=== PATIENT | female | born 1955 | race Caucasian/White ===

== ENCOUNTER 2021-04-13 11:08 | Outpatient (CLI) | payer OTHER ==
--- NOTE | 2021-04-13 11:49 | XRAY Report ---
PROCEDURE: Chest 2 View X-Ray INDICATIONS: COUGH TECHNIQUE: 2 view(s) of the chest. COMPARISON: None. FINDINGS: Surgical changes and devices: None. Lungs and pleura: No pleural effusions or pneumothorax. Lungs are clear. Mediastinum: Mediastinal contours are normal. Heart size is normal. Bones and chest wall: No suspicious bony abnormalities. Age-appropriate degenerative changes are se en. Soft tissues appear unremarkable. IMPRESSION: Unremarkable chest plain films for age, without focal infiltrates. Reviewed by: Maged Webb MD on 04/13/2021 10:48 AM [facility] Approved by: Maged Webb MD on 04/13/2021 10:48 AM [facility] Station ID: [id number]
== END 2021-04-13 11:09 | disposition home or self-care (01) ==
LOC: DI.S 11:08
PROVIDERS: ATTEND Nurse Practitioner Family
DX: R05.9 Cough, unspecified (principal)

== ENCOUNTER 2021-07-13 16:04 | Outpatient (CLI) | payer OTHER | END 2021-07-13 16:05 | disposition critical access hospital (66) | LOC: EMS 16:04 | DX: S09.90XA Unspecified injury of head, initial encounter (principal); R42 Dizziness and giddiness; R11.0 Nausea; W22.8XXA Striking against or struck by other objects, initial encounter; Y92.008 Other place in unspecified non-institutional (private) residence as the place of occurrence of the external cause | CPT/HCPCS: A0425; A0429 ==

== ENCOUNTER 2021-07-13 16:31 | Emergency (ER) | payer OTHER ==
[2021-07-13] MEDS ORDERED: ACETAMINOPHEN 325 MG TABLET PO STA (17:53)
[2021-07-13] MEDS ORDERED: IBUPROFEN 800 MG TABLET PO STA (17:54)
--- NOTE | 2021-07-13 18:17 | ED Physician Documentation ---
History of Present Illness - Stated complaint Stated Complaint: HEAD INJURY - Chief complaint Chief Complaint: Trauma Hd/Nk - History obtained from History obtained from: Patient - History of Present Illness Timing: Today Pain level max: 6 Pain level now: 4 - Additonal information Additional information: Patient is a 66-year-old female who presents to the emergency department after sustaining a head injury today. She was at home when she stood up and hit her head on the metal bicycle rack. She states she has had a concussion in the past. She felt dazed after the event and still has a mild headache as well as mild neck pain. No numbness or tingling. Nothing seems to make it better or worse. She is not on any blood thinners. Review of Systems Constitutional: denies: Fever Cardiac: denies: Chest pain / pressure Respiratory: denies: Cough GI: denies: Nausea, Diarrhea Skin: denies: Rash Musculoskeletal: denies: Back pain Neurologic: denies: Focal weakness, Numbness, Seizure, Confused, Altered mental status PD PAST MEDICAL HISTORY - Past Medical History Endocrine/Autoimmune: HyPOthyroidism - Allergies Allergies/Adverse Reactions: Allergies Allergy/AdvReac Type Severity Reaction Status Date / Time Sulfa (Sulfonamide Allergy Hives Verified 07/13/21 16:39 Antibiotics) - Social History Does the pt have substance abuse?: No - Family History Family history: reports: Non contributory - Immunizations Immunizations are current?: Yes PD ED PE NORMAL - Vitals Vital signs reviewed: Yes - General General: Alert and oriented X 3, No acute distress, Well developed/nourished - HEENT HEENT: Atraumatic, PERRL, EOMI, Ears normal, Moist mucous membranes - Neck Neck: Other (Mild upper C-spine tenderness to palpation in the midline. 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, No motor deficit, No sensory deficit, Normal speech Eye Opening: Spontaneous Motor: Obeys Commands Verbal: Oriented GCS Score: 15 - Psych Psych: Normal mood, Normal affect Results - Vitals Vitals: Vital Signs - 24 hr 07/13/21 07/13/21 16:36 18:51 Temperature 36.8 C 97.8 C H Heart Rate 66 72 Respiratory 16 18 Rate Blood Pressure 135/75 H 131/68 H O2 Saturation 98 98 Oxygen O2 Source Room air - Rads (name of study) Head CT Radiology: Final report received, EMP read contemporaneously, See rad report (No acute abnormality) Cervical spine CT Radiology: Final report received, EMP read contemporaneously, See rad report (No acute abnormality) PD MEDICAL DECISION MAKING - ED course Complexity details: reviewed results, re-evaluated patient, considered differential, d/w patient, d/w family ED course: 66-year-old female status post a closed head injury as well as neck pain. Negative CT scans. Patient is well-appearing, nontoxic. No neurological deficits. Patient counseled regarding signs and symptoms for which I believe and urgent re-evaluation would be necessary. Patient with good understanding of and agreement to plan and is comfortable going home at this time This document was made in part using voice recognition software. While efforts are made to proofread this document, sound alike and grammatical errors may occur. Departure - Departure Disposition: 01 Home, Self Care Clinical Impression: Closed head injury Qualifiers: Encounter type: initial encounter Qualified Code(s): S09.90XA - Unspecified injury of head, initial encounter Condition: Good Instructions: ED Head Injury Closed Follow-Up: JUWAN HIGGINS ARNP [Primary Care Provider] - Comments: Please follow-up with your doctor as needed for further care. Your head CT and cervical spine CT do not show any acute abnormalities today. You can use Motrin or Tylenol as needed for any pain. Return if you worsen, especially for increasing pain, vomiting, seizures or other changes. Discharge Date/Time: 07/13/21 18:50
--- NOTE | 2021-07-13 18:29 | CT Report ---
PROCEDURE: HEAD WO INDICATIONS: head/neck injury metal bike rack TECHNIQUE: Noncontrast 4.5 mm thick angled axial sections acquired from the foramen magnum to the vertex. For r adiation dose reduction, the following was used: automated exposure control, adjustment of mA and/or kV according to patient size. COMPARISON: None. FINDINGS: Image quality: Excellent. CSF spaces: Basal cisterns are patent. No extra-axial fluid collections. Ventricles are normal in size and shape. Brain: No midline shift. No intracranial masses or hemorrhage. Meza-white matter interface is norm al. Skull and face: Calvarium and visualized facial bones are intact, without suspicious lesions. Sinuses: Visualized sinuses and mastoids are clear. IMPRESSION: No evidence of acute intracranial process. Reviewed by: Gregorio Morris MD on 07/13/2021 6:28 PM PDT Approved by: Gregorio Morris MD on 07/13/2021 6:28 PM PDT Station ID: [id number]
--- NOTE | 2021-07-13 18:31 | CT Report ---
PROCEDURE: CERVICAL SPINE WO INDICATIONS: head/neck injury metal bike rack TECHNIQUE: Noncontrast 3 mm thick sections acquired from the skull base to the T4 level. Sagittal and coronal r eformats were then constructed. For radiation dose reduction, the following was used: automated exp osure control, adjustment of mA and/or kV according to patient size. COMPARISON: None. FINDINGS: Image quality: Excellent. Bones: No fractures or dislocations. Visualized superior ribs are intact. Moderate cervical spondyl itic change. Severe disc height loss and uncovertebral joint hypertrophy at C4-C5 and C5-C6. This res ults in bilateral foraminal narrowing at C5-C6 and right foraminal narrowing at C4-C5. There is multi level cervical facet arthropathy. Soft tissues: Prevertebral soft tissues are normal in thickness. No paravertebral hematomas. No ap ical pneumothoraces. IMPRESSION: 1. No evidence acute cervical fracture or dislocation. 2. Cervical spondylitic change. Reviewed by: Gregorio Morris MD on 07/13/2021 6:30 PM PDT Approved by: Gregorio Morris MD on 07/13/2021 6:30 PM PDT Station ID: [id number]
[2021-07-13 18:51] VITALS: BP 131/68
== END 2021-07-13 18:50 | disposition home or self-care (01) ==
LOC: EDUNIT# → ED 16:31
DX: S09.90XA Unspecified injury of head, initial encounter (principal); W21.89XA Striking against or struck by other sports equipment, initial encounter; Y93.89 Activity, other specified; Y92.009 Unspecified place in unspecified non-institutional (private) residence as the place of occurrence of the external cause
CPT/HCPCS: 70450; 72125; 99282; 99284; A9270

== ENCOUNTER 2022-06-03 14:34 | Outpatient (CLI) | payer OTHER | END 2022-06-03 14:35 | disposition EMS.NT | LOC: EMS 14:34 | DX: R42 Dizziness and giddiness (principal) ==

== ENCOUNTER 2023-04-19 01:31 | Outpatient (CLI) | payer OTHER | END 2023-04-19 23:59 | disposition critical access hospital (66) | LOC: EMS 01:31 | DX: R07.9 Chest pain, unspecified (principal); R10.13 Epigastric pain | CPT/HCPCS: A0425; A0427 ==

== ENCOUNTER 2023-04-19 01:34 | Emergency (ER) | payer OTHER ==
--- NOTE | 2023-04-19 01:34 | ED Physician Documentation ---
PD HPI CHEST PAIN - Stated complaint Stated Complaint: CHEST PX - History obtained from History obtained from: Patient, EMS - Additional information Additional information: BIBA. Patient complains of chest pain, midline in the region of the xiphoid process. The pain woke her from sleep at approximately 12:30 AM this morning. She has not had pain like this before. She describes the pain as sharp, initially 9 out of 10 on a pain scale, improved to 6 out of 10 prior to EMS arrival, and resolved completely with 1 sublingual nitroglycerin given by EMS. The patient had already taken 324 mg of aspirin prior to EMS arrival. Patient did not note any exacerbating factors. She denies shortness of breath, leg swelling, diaphoresis, nausea/vomiting. Review of Systems Constitutional: denies: Fever, Chills, Sweats Cardiac: reports: Chest pain / pressure. denies: Palpitations, Pedal edema, Calf pain Respiratory: reports: Reviewed and negative GI: reports: Reviewed and negative PD PAST MEDICAL HISTORY - Past Medical History Past Medical History: Yes Endocrine/Autoimmune: HyPOthyroidism - Present Medications Home Medications: Ambulatory Orders Medication Instructions Recorded Confirmed Liothyronine [Cytomel] 10 mg PO BID 04/19/23 04/19/23 - Allergies Allergies/Adverse Reactions: Allergies Allergy/AdvReac Type Severity Reaction Status Date / Time Sulfa (Sulfonamide Allergy Hives Verified 04/19/23 01:47 Antibiotics) PD ED PE NORMAL - Vitals Vital signs reviewed: Yes - General General: Alert and oriented X 3, No acute distress, Well developed/nourished - Cardiac Cardiac: RRR, No murmur, No gallop, No rub - Respiratory Respiratory: No respiratory distress, Clear bilaterally - Abdomen Abdomen: Soft, Non tender, Non distended - Derm Derm: Normal color, Warm and dry - Extremities Extremities: No edema Results - Vitals Vitals: Vital Signs - 24 hr 04/19/23 04/19/23 04/19/23 01:35 01:42 02:12 Temperature 36.2 C L Heart Rate 58 L 70 58 L Respiratory 17 19 15 Rate Blood Pressure 150/86 H 150/86 H 131/69 H O2 Saturation 99 98 99 04/19/23 02:51 Temperature Heart Rate 65 Respiratory 18 Rate Blood Pressure 131/64 H O2 Saturation 98 Oxygen O2 Source Room air - EKG (time done) No standard instances EKG releavant findings:: EKG personally interpreted by author of this note. Relevant findings are: Rate: Rate (enter#) (58) Rhythm: NSR Willis: Normal Intervals: Normal GA QRS: Normal Ischemia: Normal ST segments - Labs Labs: Laboratory Tests 04/19/23 04/19/23 04/19/23 01:40 01:40 01:40 WBC 7.2 RBC 4.18 L Hgb 12.6 Hct 40.6 MCV 97.1 MCH 30.1 MCHC 31.0 L RDW 14.3 Plt Count 219 MPV 11.0 H Neut # (Auto) 3.3 Lymph # (Auto) 2.8 Norman # (Auto) 0.7 Eos # (Auto) 0.4 Baso # (Auto) 0.0 Absolute Nucleated RBC 0.00 Nucleated RBC % 0.0 Sodium 139 Potassium 4.1 Chloride 105 Carbon Dioxide 27 Anion Gap 7.0 BUN 13 Creatinine 0.5 L Estimated GFR (MDRD) 122 Glucose 109 H Calcium 9.7 Total Bilirubin 0.2 AST 18 ALT 16 Alkaline Phosphatase 52 Troponin I High Sens 2.3 Total Protein 6.8 Albumin 4.1 Globulin 2.7 Albumin/Globulin Ratio 1.5 Lipase 46 - Rads (name of study) chest xray Relevant Findings:: Prelim report reviewed, See rad report PD Medical Decision Making - ED course Complexity details: reviewed results, re-evaluated patient, considered differential, d/w patient ED course: Normal EKG, unremarkable blood test including high-sensitivity troponin. My interpretation of the chest x-ray is no cardiopulmonary abnormality; however, radiologist's reading is "Right infrahilar bronchial wall thickening is suspected, along with subtle interstitial changes in the right lung base". Radiologist's impression is "subtle changes in right base, possibly infiltrate." The patient does not have any signs nor symptoms to suggest bronchitis or pneumonia. The chest x-ray finding is incidental, but I did discuss this with the patient and instructed her to mention that there was a slight right sided lung abnormality on the chest x-ray that might benefit from follow-up testing. Departure - Departure Disposition: Home, Self Care Clinical Impression: Chest pain Qualifiers: Chest pain type: unspecified Qualified Code(s): R07.9 - Chest pain, unspecified Condition: Good Instructions: ED Chest Pain Atypical Unkn Cause Comments: There were no concerning nor diagnostic findings on tonight's tests including the EKG and blood tests. The radiologist notes subtle abnormality in your right lung at the right lung base; this is of unclear cause/significance, but it does not seem to be related to tonight's symptoms. Mention this abnormality to your primary care provider when following-up; further testing might be indicated. The cause of your symptoms is not apparent at this time. Follow up with your primary care provider, next available appointment, for reevaluation. Further testing might be needed even if your symptoms do not recur. Forms: PCP List Discharge Date/Time: 04/19/23 03:04
[2023-04-19 01:57] LABS: BASOPHILS % (AUTO) 0.4 %; EOSINOPHILS # (AUTO) 0.4 10^3/uL (0.0-0.7); EOSINOPHILS % (AUTO) 5.1 %; HCT - HEMATOCRIT 40.6 % (37.0-47.0); HGB - HEMOGLOBIN 12.6 g/dL (12.0-16.0); LYMPHOCYTES # (AUTO) 2.8 10^3/uL (1.5-3.5); LYMPHOCYTES % (AUTO) 38.9 %; MEAN CORPUSCULAR HEMOGLOBIN 30.1 pg (27.0-31.0); MEAN CORPUSCULAR VOLUME 97.1 fL (81.0-99.0); MONOCYTES # (AUTO) 0.7 10^3/uL (0.0-1.0); MONOCYTES % (AUTO) 9.7 %; NEUTROPHILS # (AUTO) 3.3 10^3/uL (1.5-6.6); NEUTROPHILS % (AUTO) 45.8 %; PLT - PLATELET COUNT 219 10^3/uL (130-450); RED BLOOD COUNT 4.18 10^6/uL (4.20-5.40); RED CELL DISTRIBUTION WIDTH 14.3 % (12.0-15.0); WHITE BLOOD COUNT 7.2 x10^3/uL (4.8-10.8)
[2023-04-19 02:16] LABS: ALBUMIN 4.1 g/dL (3.2-5.5); ALBUMIN/GLOBULIN RATIO 1.5 (1.0-2.2); BILIRUBIN,TOTAL 0.2 mg/dL (0.2-1.0); CALCIUM 9.7 mg/dL (8.5-10.3); CREATININE 0.5 mg/dL (0.6-1.3); POTASSIUM 4.1 mmol/L (3.5-4.5); TOTAL PROTEIN 6.8 g/dL (6.4-8.9)
[2023-04-19 02:55] VITALS: BP 131/64; O2SAT 98
--- NOTE | 2023-04-19 08:10 | XRAY Report ---
PROCEDURE: Chest 1V INDICATIONS: chest pain TECHNIQUE: One view of the chest was acquired. COMPARISON: 04/13/2021 FINDINGS: Surgical changes and devices: None. Lungs and pleura: No pleural effusions or pneumothorax. Minimal streaky opacity can be seen at the r ight lung base. Lungs are otherwise clear. Mediastinum: Mediastinal contours appear normal. Heart size is normal. Calcification is seen of the aortic arch. Bones and chest wall: No suspicious bony lesions. Overlying soft tissues appear unremarkable. IMPRESSION: Minimal opacity seen at the right lung base, which is likely related to atelectasis or artifact. Diff erential diagnosis includes infiltrate. Note: No significant discrepancy from the preliminary report. Reviewed by: Maged Webb MD on 04/19/2023 7:09 AM [facility] Approved by: Maged Webb MD on 04/19/2023 7:09 AM [facility] Station ID: [id number]
== END 2023-04-19 03:04 | disposition home or self-care (01) ==
LOC: EDUNIT# → ED 01:34
DX: R07.9 Chest pain, unspecified (principal); E03.9 Hypothyroidism, unspecified; Z79.899 Other long term (current) drug therapy
CPT/HCPCS: 36415; 80053; 83690; 84484; 85025; 93005; 99284

== ENCOUNTER 2023-05-26 13:29 | Outpatient (CLI) | payer OTHER | END 2023-05-26 23:59 | disposition EMS.NT | LOC: EMS 13:29 | DX: R55 Syncope and collapse (principal) ==